=== PATIENT | male | born 1940 | race Caucasian/White ===

== ENCOUNTER 2021-05-11 18:59 | Inpatient (IN) | payer OTHER, MEDICARE ==
[~2021-05-11] VITALS: Ht 188 cm; Wt 83.9 kg
[2021-05-11] MEDS ORDERED: VANCOMYCIN IV 1,000 MG in IV DEXTROSE 5% 250 ML IV ONE (20:45)
[2021-05-11 20:52] LABS: HEMATOCRIT 42.7 % (36.7-47.1); MEAN CORPUSCULAR HEMOGLOBIN 35.2 uug (23.8-33.4); MEAN CORPUSCULAR VOLUME 103.2 fL (73.0-96.2); PLATELET COUNT (AUTO) 135 K/uL (152-348)
[2021-05-11 20:59] LABS: CARBON DIOXIDE 21 mmol/L (21-32); CHLORIDE 102 mmol/L (98-107); CREATININE 1.4 mg/dL (0.6-1.3); GLUCOSE 268 mg/dL (74-106); POTASSIUM 4.1 mmol/L (3.5-5.1); UREA NITROGEN, BLOOD 33 mg/dL (7-18)
[2021-05-11 21:11] LABS: ALANINE AMINOTRANSFERASE 17 U/L (16-63); ALKALINE PHOSPHATASE 111 U/L (50-136); ASPARTATE AMINOTRANSFERASE 11 U/L (15-37); BILIRUBIN,DIRECT 0.2 mg/dL (0.0-0.2); BILIRUBIN,TOTAL 0.8 mg/dL (0.2-1.0); TOTAL PROTEIN, SERUM 7.3 g/dL (6.4-8.2)
--- NOTE | 2021-05-11 21:27 | NUR ---
PT out of ER for Xray.
[2021-05-11] MEDS ORDERED: PIPERACILLIN SODIUM/TAZOBACTAM 4.5 G in IV DEXTROSE 5% 50 ML IV SCH (22:00)
[2021-05-11] MEDS ORDERED: MEROPENEM 1,000 MG in IV NORMAL SALINE 100 ML IV ONE (22:45)
[2021-05-11] MEDS ORDERED: VANCOMYCIN IV 200 ML ONE (23:57)
[2021-05-11] MEDS ORDERED: MEROPENEM 1GM/NS 100ML IVPB **ER PYXIS ONLY IV ONE (23:58)
[2021-05-11] MEDS ORDERED: PIPERACILLIN/TAZO 4.5 GM VIAL IV ONE (23:59)
[2021-05-12] MEDS ORDERED: MAGNESIUM HYDROXIDE 30 ML LIQUID UDC PO PRN (01:15)
[2021-05-12] MEDS ORDERED: ONDANSETRON 4 MG/2 ML VIAL IV PRN (01:15)
[2021-05-12] MEDS ORDERED: Z GUARD REMEDY PASTE 57 GM TUBE TOP PRN (01:15)
[2021-05-12] MEDS ORDERED: DEXTROSE 50% 50 ML DISP.SYRIN IV PRN (01:15)
[2021-05-12] MEDS: MEROPENEM 1 G in IV NORMAL SALINE 100 ML IV SCH ×3 (01:23→13:47)
[2021-05-12] MEDS ORDERED: MEROPENEM 1 G VIAL IV ONE ×4 (01:40→23:26)
[2021-05-12] MEDS: BLOOD SUGAR DIAGNOSTIC 1 EACH STRIP VI SCH ×4 (07:34→21:05)
[2021-05-12] MEDS: IV NS 1000 ML 1,000 ML IV PRN ×2 (07:35→23:21)
[2021-05-12] MEDS: INSULIN REGULAR, HUMAN 300 UNIT/3 ML VIAL SQ PRN ×3 (07:38→16:32)
--- NOTE | 2021-05-12 07:41 | NUR ---
PT IS RESTING IN BED COMFORTABLY. NO S/S OF ACUTE DISTRESS AT THIS TIME.
[2021-05-12] MEDS ORDERED: INSULIN REGULAR, HUMAN 300 UNIT/3 ML VIAL ONE (07:47)
[2021-05-12 09:04] LABS: CARBON DIOXIDE 23 mmol/L (21-32); CHLORIDE 107 mmol/L (98-107); CREATININE 1.4 mg/dL (0.6-1.3); GLUCOSE 133 mg/dL (74-106); PHOSPHOROUS 3.4 mg/dL (2.5-4.9); POTASSIUM 4.5 mmol/L (3.5-5.1); UREA NITROGEN, BLOOD 31 mg/dL (7-18)
[2021-05-12] MEDS ORDERED: SIMV-49 PO (10:25)
[2021-05-12] MEDS ORDERED: ACAR100T2 PO (10:26)
[2021-05-12] MEDS ORDERED: GLYB5TAB7 PO (10:28)
[2021-05-12] MEDS ORDERED: CLOP75TA33 PO (10:28)
[2021-05-12] MEDS ORDERED: EMPA25TA PO (10:28)
[2021-05-12] MEDS ORDERED: QUIN10TA16 PO (10:28)
[2021-05-12] MEDS ORDERED: PANT40TA49 PO (10:28)
[2021-05-12] MEDS ORDERED: CARI350T PO (10:28)
[2021-05-12] MEDS ORDERED: METF-442 PO (10:28)
[2021-05-12] MEDS ORDERED: CYAN-51 PO (10:32)
[2021-05-12 13:05] LABS: HEMATOCRIT 40.9 % (36.7-47.1); MEAN CORPUSCULAR HEMOGLOBIN 35.3 uug (23.8-33.4); MEAN CORPUSCULAR VOLUME 104.2 fL (73.0-96.2); PLATELET COUNT (AUTO) 109 K/uL (152-348)
[2021-05-12] MEDS ORDERED: MEROPENEM 1GM/NS 100ML IVPB **ER PYXIS ONLY IV ONE (13:51)
[2021-05-12] MEDS ORDERED: VANCOMYCIN IV 200 ML ONE (13:52)
[2021-05-12] MEDS: VANCOMYCIN IV 1,000 MG in IV DEXTROSE 5% 250 ML IV SCH (14:44)
--- NOTE | 2021-05-12 18:09 | NUR ---
REPORT GIVEN TO AUGUSTIN M/S. PT WAS TRANSFERED TO ROOM #317.
--- NOTE | 2021-05-12 18:32 | NUR ---
PT WAS NOT TRANSFERED TO M/S ROOM #317 , DUE TO INSURANCE PROBLEMS. PT IS IN ER ROOM #1A.
--- NOTE | 2021-05-12 21:35 | NUR ---
Report given to Larissa RUFFIN Medsurg.
--- NOTE | 2021-05-12 21:35 | NUR ---
Report Received from ER Nurse.
--- NOTE | 2021-05-12 22:30 | NUR ---
Patient Arrived from ER via gurney. Awake, alert, and oriented x3. On room air saturating 98%. temperature 98.2, pulse 71, respiratory rate 18, BP 139/57. IV on right forearm patent and intact. Non-pitting edema of the left foot and ankle. Non-blanching redness on the sacrum, mediplex applied. No complaints of pain. Bed alarm on, Call light within reach, and bed in the lowest position. All were attended to and met. Will continue to monitor.
[2021-05-12 23:31] VITALS: BP 139/51
[2021-05-13] MEDS: MEROPENEM 1 G in IV NORMAL SALINE 100 ML IV SCH ×2 (00:20→06:00)
[2021-05-13 04:43] VITALS: BP 152/68
[2021-05-13] MEDS: BLOOD SUGAR DIAGNOSTIC 1 EACH STRIP VI SCH ×4 (06:50→21:10)
[2021-05-13 07:03] LABS: MEAN CORPUSCULAR HEMOGLOBIN 36.2 uug (23.8-33.4); MEAN CORPUSCULAR VOLUME 103.4 fL (73.0-96.2); PLATELET COUNT (AUTO) 116 K/uL (152-348)
[2021-05-13 07:09] LABS: MAGNESIUM 1.8 mg/dL (1.8-2.4); PHOSPHOROUS 2.3 mg/dL (2.5-4.9); POTASSIUM 3.4 mmol/L (3.5-5.1)
--- NOTE | 2021-05-13 07:12 | NUR ---
Patient slept through the night. On room air saturating 98%. IV on right forearm patent and intact. No complaints of pain. Bed alarm on, Call light within reach, and bed in the lowest position. All were attended to and met. Will endorse to AM shift.
--- NOTE | 2021-05-13 10:39 | NUR ---
WOUND CARE CONSULT: PT PRESENTS WITH SACRAL DEEP TISSUE INJURY WHICH IS INTACT WELL LEFT FOOT DRY WOUNDS AND REDNESS, PRESENT ON ADMISSION. DR DARDEN NOTIFIED OF DPM CONSULT. RECOMMENDATIONS MADE FOR SKIN PROTECTION. DISCUSSED WITH NURSING STAFF. IN AGREEMENT WITH PLAN OF CARE. Addendum: 05/13/21 at 1040 by CHRISTIN RANGEL RN Amended: Links added.
[2021-05-13] MEDS ORDERED: POTASSIUM CHLORIDE 20 MEQ POWDER PACKET PO ONE ×2 (11:00)
[2021-05-13] MEDS: VANCOMYCIN IV 1,000 MG in IV DEXTROSE 5% 250 ML IV SCH (11:44)
[2021-05-13 12:00] VITALS: BP 146/66
[2021-05-13] MEDS: IV NS 1000 ML 1,000 ML IV PRN (12:08)
[2021-05-13] MEDS: INSULIN REGULAR, HUMAN 300 UNIT/3 ML VIAL SQ PRN ×3 (12:40→21:12)
[2021-05-13] MEDS ORDERED: NEUTRA PHOS PACKET PO ONE (15:45)
[2021-05-13 16:00] VITALS: BP 152/72
--- NOTE | 2021-05-13 18:15 | NUR ---
Patient comfortable t/o shift. Denies pain or SOB. Midline was inserted on the left UA, IVF infusing at the moment. Patient remains in RA sating at 96%. Blood sugars maintained with ordered insulin. Vital signs stable. Patient was able to work with OT and PT, see assessment for further information. Wound care provided on the sacral area and bilateral lower ext. All meds given as ordered. All needs met. Safety and comfort measures maintained t/o shift.
--- NOTE | 2021-05-13 19:30 | NUR ---
Patient is aao x4. in a pleasant mood. Able to make needs known. C/O pain to left leg. Tylenol offered and accepted. Midline to left upper arm intact and patent. On RA, no SOB. Safety measures initiated, call light within reach.
[2021-05-13 20:00] VITALS: BP 128/38
[2021-05-13] MEDS: ACETAMINOPHEN 325 MG TABLET PO PRN (21:08)
[2021-05-13] MEDS: DOXYCYCLINE HYCLATE 100 MG TABLET PO SCH (21:08)
[2021-05-14 04:00] VITALS: BP 131/37
[2021-05-14] MEDS: BLOOD SUGAR DIAGNOSTIC 1 EACH STRIP VI SCH ×4 (06:31→20:37)
[2021-05-14 06:44] LABS: HEMATOCRIT 39.4 % (36.7-47.1); MEAN CORPUSCULAR HEMOGLOBIN 35.9 uug (23.8-33.4); PLATELET COUNT (AUTO) 122 K/uL (152-348)
--- NOTE | 2021-05-14 06:53 | NUR ---
Patient slept well. No significant events this shift. In no respiratory distress. No s/s of hypo/hyperglycemia. Safety measures continued. Call light within reach.
[2021-05-14 07:09] LABS: CREATININE 0.9 mg/dL (0.6-1.3); MAGNESIUM 1.9 mg/dL (1.8-2.4); PHOSPHOROUS 2.7 mg/dL (2.5-4.9); POTASSIUM 3.8 mmol/L (3.5-5.1)
[2021-05-14] MEDS: DOXYCYCLINE HYCLATE 100 MG TABLET PO SCH ×2 (08:47→20:33)
--- NOTE | 2021-05-14 08:50 | NUR ---
awake alert and oriented x 4, states left knee is more painful today than yesterday- medicated with Tylenol 2 tabs as ordered prn, explained plan of care- verbalized understanding, call light within reach
[2021-05-14] MEDS: ACETAMINOPHEN 325 MG TABLET PO PRN ×2 (08:52→19:05)
[2021-05-14 12:00] VITALS: BP 167/70
--- NOTE | 2021-05-14 12:00 | NUR ---
consent to release records from [facility] to [facility] signed and faxed to [facility]
[2021-05-14] MEDS: INSULIN REGULAR, HUMAN 300 UNIT/3 ML VIAL SQ PRN ×3 (12:06→20:40)
[2021-05-14 16:00] VITALS: BP 158/63
[2021-05-14] MEDS: ARGININE/GLUTAMINE/CALCIUM BMB 1 EACH POWD.PACK PO SCH ×2 (18:00→18:09)
[2021-05-14] MEDS: ENSURE ENLIVE (VAN) 240 ML LIQUID PO SCH (18:09)
--- NOTE | 2021-05-14 18:30 | NUR ---
here visiting, up dated, no distress noted, all needs attended and met, call light within reach
[2021-05-14 20:00] VITALS: BP 149/58
--- NOTE | 2021-05-14 20:00 | NUR ---
Patient resting in bed, aao x4. Able to make needs known. C/O severe pain to left leg. Tylenol given by day shift, will reassess. Midline to left upper arm intact and patent. Off loading continued for sacral DTI- improvement noted. On RA, no SOB. Left foot still noted with scab to big toe metatarsal and toe with redness. Safety measures initiated, call light within reach.
[2021-05-14] MEDS ORDERED: SIMVASTATIN 40 MG TABLET PO SCH (21:00)
--- NOTE | 2021-05-14 23:15 | NUR ---
DR. HCAVEZ MADE AWARE OF SEVERE PAIN TO LEFT LEG WITH ORDERS FOR PRN [place].
[2021-05-14] MEDS: HYDROCODONE/APAP 5-325MG TABLET PO PRN (23:49)
[2021-05-15 04:00] VITALS: BP 116/44
[2021-05-15] MEDS: HYDROCODONE/APAP 5-325MG TABLET PO PRN (06:07)
--- NOTE | 2021-05-15 06:43 | NUR ---
Patient slept well. NO further pain to left leg, [place] effective. No significant events this shift. In no respiratory distress. No s/s of hypo/hyperglycemia. Safety measures continued. Call light within reach.
[2021-05-15] MEDS: BLOOD SUGAR DIAGNOSTIC 1 EACH STRIP VI SCH ×3 (06:44→16:32)
[2021-05-15 06:51] LABS: HEMATOCRIT 38.8 % (36.7-47.1); MEAN CORPUSCULAR HEMOGLOBIN 35.5 uug (23.8-33.4); MEAN CORPUSCULAR VOLUME 101.8 fL (73.0-96.2); PLATELET COUNT (AUTO) 127 K/uL (152-348)
[2021-05-15] MEDS ORDERED: PANTOPRAZOLE SODIUM 40 MG TABLET.DR PO SCH (07:00)
[2021-05-15 07:13] LABS: MAGNESIUM 1.8 mg/dL (1.8-2.4); POTASSIUM 3.9 mmol/L (3.5-5.1)
--- NOTE | 2021-05-15 08:00 | NUR ---
alert/oriented x 4, denies of pain, explained plan fo care- verbalized understanding, safety measures maintained, breakfast served and PT saw him after, needs attended, call light within reach
[2021-05-15] MEDS: DOXYCYCLINE HYCLATE 100 MG TABLET PO SCH (08:28)
[2021-05-15] MEDS: ENSURE ENLIVE (VAN) 240 ML LIQUID PO SCH ×2 (08:30→16:35)
[2021-05-15] MEDS: INSULIN REGULAR, HUMAN 300 UNIT/3 ML VIAL SQ PRN ×3 (08:45→16:34)
[2021-05-15] MEDS ORDERED: CYANOCOBALAMIN 1,000 MCG TABLET PO SCH (09:00)
[2021-05-15] MEDS ORDERED: LISINOPRIL 10 MG TABLET PO SCH (09:00)
[2021-05-15] MEDS ORDERED: QUINAPRIL HCL 10 MG PO SCH (09:00)
[2021-05-15] MEDS ORDERED: CLOPIDOGREL 75 MG TABLET PO SCH (09:00)
[2021-05-15] MEDS: ARGININE/GLUTAMINE/CALCIUM BMB 1 EACH POWD.PACK PO SCH ×2 (11:00→18:00)
[2021-05-15 12:00] VITALS: BP 130/75
[2021-05-15] MEDS ORDERED: DOXY100T2 PO (13:44)
[2021-05-15 16:00] VITALS: BP 155/70
--- NOTE | 2021-05-15 17:00 | NUR ---
Pt is being d/cd to [facility]- pt aware and as well
--- NOTE | 2021-05-15 18:00 | NUR ---
discharge instructions given- understood well, awaiting for ambulance, pt in stable condition
--- NOTE | 2021-05-15 19:36 | NUR ---
report given to material hauler RN- midline to be removed prior to discharge
--- NOTE | 2021-05-15 20:11 | NUR ---
Patient picked up and transported to [email or web address]Dc'd midline on left upper arm.No active bleeding noted.All discharged papers and belongings given to patient. Left in stable condition.VSS
== END 2021-05-15 20:32 | DRG 602 ==
LOC: ER 19:06 → TRANSITION 05-12 01:13 → UNDOADMIN 05-12 09:18 → MEDSURG3 05-12 22:11
PROVIDERS: ADMIT Registered Nurse; ATTEND Nurse Practitioner Family
PROC: 05H633Z Insertion of Infusion Device into Left Subclavian Vein, Percutaneous Approach (ICD-10-PCS; principal; 2021-05-13)
PROC: B547ZZA Ultrasonography of Left Subclavian Vein, Guidance (ICD-10-PCS; 2021-05-13)
DX: L03.116 Cellulitis of left lower limb (principal); N17.0 Acute kidney failure with tubular necrosis; E11.621 Type 2 diabetes mellitus with foot ulcer; L97.529 Non-pressure chronic ulcer of other part of left foot with unspecified severity; E86.0 Dehydration; Z20.822 Contact with and (suspected) exposure to COVID-19; Z88.0 Allergy status to penicillin; Z79.899 Other long term (current) drug therapy; Z87.891 Personal history of nicotine dependence; E11.42 Type 2 diabetes mellitus with diabetic polyneuropathy; E11.51 Type 2 diabetes mellitus with diabetic peripheral angiopathy without gangrene; F03.90 Unspecified dementia, unspecified severity, without behavioral disturbance, psychotic disturbance, mood disturbance, and anxiety; G89.29 Other chronic pain; I25.2 Old myocardial infarction; L89.156 Pressure-induced deep tissue damage of sacral region; Z79.84 Long term (current) use of oral hypoglycemic drugs
CPT/HCPCS: 36415; 71045; 73630; 83735; 84100; 85025; 87040; 93005; 97161; A6209; G0378; J1815; J2185; J2543; J3370; J3490; J7030; J7060